=== PATIENT | female | born 1985 | race Caucasian/White ===

== ENCOUNTER → 2016-05-23 | Outpatient (CLI) | payer MEDICAID ==
[~2016-05-23] MED LIST: AMITRIPTYLINE H25 M2 PO
[2016-05-23 16:44] VITALS: BP 130/72
--- NOTE | 2016-05-23 17:45 | NUR ---
760 ML OF NS INFUSED AND PT REPORTS SHE HAS TO LEAVE RIGHT AWAY TO GET HER CHILD. Lora CHURCHILL UPDATED ON PT
[2016-05-23 19:03] VITALS: BP 116/75
== END ==
LOC: AMSURD 16:24
DX: G43.909 Migraine, unspecified, not intractable, without status migrainosus (principal)
CPT/HCPCS: J1200; J2405; J7030

== ENCOUNTER → 2016-09-20 | Outpatient (CLI) | payer MEDICAID ==
[2016-05-23 19:03] VITALS: BP 116/75
== END ==
LOC: LAB 15:16
DX: R10.11 Right upper quadrant pain (principal)

== ENCOUNTER 2017-01-03 12:07 | Emergency (ER) | payer MEDICAID ==
[~2017-01-03] VITALS: Ht 165.1 cm; Wt 90.9 kg
[2017-01-03] MEDS ORDERED: CLARITIN LIQUI-10 MG PO (12:24)
[2017-01-03] MEDS ORDERED: PREDNISONE (12:24)
[2017-01-03] MEDS ORDERED: GOOD NEIGHBOR200 M3 PO (12:25)
[2017-01-03] MEDS ORDERED: LEVSIN-SL0.125 MG SL (15:06)
[2017-01-03] MEDS ORDERED: ZOFRAN ODT8 M1 PO (15:06)
[2017-01-03 15:18] VITALS: BP 127/82
== END 2017-01-03 15:20 | disposition home or self-care (01) ==
LOC: ED 12:07
DX: K52.9 Noninfective gastroenteritis and colitis, unspecified (principal); K08.89 Other specified disorders of teeth and supporting structures
CPT/HCPCS: J2405; J7120

== ENCOUNTER → 2017-06-07 | Outpatient (CLI) | payer MEDICAID ==
[~2017-06-07] MED LIST changes: +CITRATE OF1.75 GM/30 PO; +CLARITIN LIQUI-10 MG PO; +GOOD NEIGHBOR200 M3 PO; +LEVSIN-SL0.125 MG SL; +MIRALAX17 GM PO; +PREDNISONE; +ZOFRAN ODT8 M1 PO
[2017-06-07 12:31] LABS: EOS # 0.1 (0.04-0.40); EOS % 1.2 % (1.0-5.0); HEMATOCRIT 41.5 % (37.0-47.0); HEMOGLOBIN 13.8 g/dL (12.5-16.0); LYMPH# 1.6 (1.50-4.00); MEAN CELL VOLUME 82 fl (78-100); MEAN CORPUSCULAR HEMOGLOBIN 27 pg (27-31); MEAN CORPUSCULAR HGB CONC 33 g/dL (33-37); MEAN PLATELET VOLUME 10.3 fl (7.4-10.4); MONO # 0.6 (0.20-0.80); NEU # 6.9 (1.40-6.50); PLATELET COUNT 237 K/mm3 (130-400); RED BLOOD COUNT 5.05 M/mm3 (4.10-5.30); RED CELL DISTRIBUTION WIDTH 14.2 % (11.5-14.5); WHITE BLOOD COUNT 9.3 K/mm3 (4.8-10.8)
[2017-06-07 12:58] LABS: ALBUMIN 4.2 g/dL (3.5-5.0); BUN/CREATININE RATIO 15.6 (6.0-26.0); CALCIUM 9.7 mg/dL (8.4-10.2); POTASSIUM 4.1 mmol/L (3.6-5.0); TOTAL BILIRUBIN 0.5 mg/dL (0.2-1.3); TOTAL PROTEIN 8.3 g/dL (6.3-8.2)
[2017-06-07 13:16] LABS: PH-URINE 5.5 (5.0 - 8.0); URINE APPEARANCE HAZY; URINE COLOR YELLOW; URINE PROTEIN(semi-quant) TRACE mg/dL (NEGATIVE)
[2017-06-07 13:17] LABS: URINE BILIRUBIN NEGATIVE (NEGATIVE); URINE BLOOD NEGATIVE (NEGATIVE); URINE GLUCOSE NEGATIVE (NEGATIVE); URINE KETONE NEGATIVE (NEGATIVE); URINE LEUKOCYTE ESTERASE 1+ (NEGATIVE); URINE NITRATE NEGATIVE (NEGATIVE); URINE UROBILINOGEN NORMAL (NORMAL); URINE WBC 0-1 /hpf (0-3)
== END ==
LOC: LAB 12:00
PROVIDERS: Nurse Practitioner Family
DX: R10.11 Right upper quadrant pain (principal)

== ENCOUNTER 2017-06-08 06:49 | Emergency (ER) | payer MEDICAID ==
[~2017-06-08] VITALS: Ht 165.1 cm; Wt 90.0 kg
[~2017-06-08 06:49] MED LIST changes: -CITRATE OF1.75 GM/30 PO; -MIRALAX17 GM PO
[2017-06-08] MEDS ORDERED: MIRALAX17 GM PO (07:05)
[2017-06-08 07:42] LABS: EOS # 0.1 (0.04-0.40); EOS % 1.1 % (1.0-5.0); HEMATOCRIT 40.1 % (37.0-47.0); HEMOGLOBIN 13.3 g/dL (12.5-16.0); LYMPH# 1.5 (1.50-4.00); MEAN CELL VOLUME 81 fl (78-100); MEAN CORPUSCULAR HEMOGLOBIN 27 pg (27-31); MEAN CORPUSCULAR HGB CONC 33 g/dL (33-37); MONO # 0.6 (0.20-0.80); NEU # 6.3 (1.40-6.50); PLATELET COUNT 231 K/mm3 (130-400); RED BLOOD COUNT 4.93 M/mm3 (4.10-5.30); WHITE BLOOD COUNT 8.5 K/mm3 (4.8-10.8)
[2017-06-08 07:55] LABS: ALBUMIN 4.1 g/dL (3.5-5.0); BUN/CREATININE RATIO 15.1 (6.0-26.0); CALCIUM 9.5 mg/dL (8.4-10.2); TOTAL BILIRUBIN 0.5 mg/dL (0.2-1.3); TOTAL PROTEIN 8.2 g/dL (6.3-8.2)
[2017-06-08 08:12] LABS: PH-URINE 6.5 (5.0 - 8.0); URINE APPEARANCE CLEAR; URINE BILIRUBIN NEGATIVE (NEGATIVE); URINE BLOOD NEGATIVE (NEGATIVE); URINE COLOR YELLOW; URINE GLUCOSE NEGATIVE (NEGATIVE); URINE KETONE NEGATIVE (NEGATIVE); URINE NITRATE NEGATIVE (NEGATIVE); URINE PROTEIN(semi-quant) TRACE mg/dL (NEGATIVE); URINE UROBILINOGEN NORMAL (NORMAL)
[2017-06-08 08:13] LABS: URINE LEUKOCYTE ESTERASE NEGATIVE (NEGATIVE)
[2017-06-08] MEDS ORDERED: CITRATE OF1.75 GM/30 PO (08:37)
[2017-06-08 08:49] VITALS: BP 137/78
== END 2017-06-08 08:58 | disposition home or self-care (01) ==
LOC: ED 06:49
PROVIDERS: Physician Assistant
DX: K59.00 Constipation, unspecified (principal); Z90.49 Acquired absence of other specified parts of digestive tract; Z88.5 Allergy status to narcotic agent

== ENCOUNTER → 2017-08-12 | Outpatient (CLI) | payer MEDICAID ==
[~2017-08-12] MED LIST changes: +CITRATE OF1.75 GM/30 PO; +MIRALAX17 GM PO
== END ==
LOC: RAD 08:38
DX: M79.644 Pain in right finger(s) (principal)

== ENCOUNTER 2017-08-29 19:45 | Emergency (ER) | payer MEDICAID ==
[~2017-08-29] VITALS: Ht 165.1 cm; Wt 86.4 kg
[2017-08-29 20:58] VITALS: BP 120/60
== END 2017-08-29 20:58 | disposition home or self-care (01) ==
LOC: ED 19:45
DX: G43.909 Migraine, unspecified, not intractable, without status migrainosus (principal)
CPT/HCPCS: J1885; J2550

== ENCOUNTER → 2017-11-01 | Outpatient (CLI) | payer MEDICAID ==
[2017-11-01 16:38] LABS: ALBUMIN 4.6 g/dL (3.5-5.0); BUN/CREATININE RATIO 13.8 (6.0-26.0); CALCIUM 9.6 mg/dL (8.4-10.2); POTASSIUM 3.6 mmol/L (3.6-5.0); TOTAL BILIRUBIN 0.2 mg/dL (0.2-1.3); TOTAL PROTEIN 8.7 g/dL (6.3-8.2)
[2017-11-01 16:41] LABS: EOS # 0.1 (0.04-0.40); EOS % 0.9 % (1.0-5.0); HEMATOCRIT 38.7 % (37.0-47.0); HEMOGLOBIN 12.6 g/dL (12.5-16.0); LYMPH# 2.2 (1.50-4.00); MEAN CELL VOLUME 82 fl (78-100); MEAN CORPUSCULAR HEMOGLOBIN 27 pg (27-31); MEAN CORPUSCULAR HGB CONC 33 g/dL (33-37); MEAN PLATELET VOLUME 10.2 fl (7.4-10.4); MONO # 0.6 (0.20-0.80); NEU # 7.7 (1.40-6.50); PLATELET COUNT 232 K/mm3 (130-400); RED BLOOD COUNT 4.72 M/mm3 (4.10-5.30); RED CELL DISTRIBUTION WIDTH 14.6 % (11.5-14.5); WHITE BLOOD COUNT 10.5 K/mm3 (4.8-10.8)
== END ==
LOC: LAB 16:09
PROVIDERS: Family Medicine
DX: K86.1 Other chronic pancreatitis (principal); R53.83 Other fatigue; E66.9 Obesity, unspecified; E55.9 Vitamin D deficiency, unspecified

== ENCOUNTER 2018-01-01 20:10 | Emergency (ER) | payer MEDICAID ==
[~2018-01-01] VITALS: Ht 165.1 cm; Wt 84.1 kg
[2018-01-01] MEDS ORDERED: WOMEN'S DAILY F1 TAB PO (20:21)
[2018-01-01] MEDS ORDERED: NORCO 325 MG-51 TA1 PO (20:40)
[2018-01-01] MEDS ORDERED: PENICILLIN-VK500 M1 PO (20:40)
[2018-01-01 21:06] VITALS: BP 132/80
== END 2018-01-01 21:06 | disposition home or self-care (01) ==
LOC: ED 20:10
DX: K08.89 Other specified disorders of teeth and supporting structures (principal)
CPT/HCPCS: J1885

== ENCOUNTER → 2018-04-02 | Outpatient (CLI) | payer MEDICAID ==
[~2018-04-02] MED LIST changes: +NORCO 325 MG-51 TA1 PO; +PENICILLIN-VK500 M1 PO; +WOMEN'S DAILY F1 TAB PO
== END ==
LOC: RAD 08:55
DX: M25.512 Pain in left shoulder (principal)

== ENCOUNTER → 2018-04-09 | Outpatient (CLI) | payer BC, MEDICAID | LOC: RAD 14:00 | DX: M25.512 Pain in left shoulder (principal) ==

== ENCOUNTER → 2018-09-28 | Outpatient (CLI) | payer BC | LOC: LAB 09:22 | PROVIDERS: Family Medicine | DX: F10.21 Alcohol dependence, in remission (principal) ==

== ENCOUNTER → 2018-10-08 | Outpatient (CLI) | payer BC ==
[~2018-10-08] MED LIST changes: +GOOD NEIGHBOR P20 M1 PO; +ZYRTEC ALLERGY10 MG PO
[2018-10-08 16:16] LABS: EOS # 0.2 (0.04-0.40); EOS % 2.2 % (1.0-5.0); HEMATOCRIT 40.5 % (37.0-47.0); HEMOGLOBIN 13.3 g/dL (12.5-16.0); LYMPH# 1.7 (1.50-4.00); MEAN CELL VOLUME 84 fl (78-100); MEAN CORPUSCULAR HEMOGLOBIN 28 pg (27-31); MEAN CORPUSCULAR HGB CONC 33 g/dL (33-37); MEAN PLATELET VOLUME 9.8 fl (7.4-10.4); MONO # 0.7 (0.20-0.80); NEU # 7.1 (1.40-6.50); PLATELET COUNT 272 K/mm3 (130-400); RED BLOOD COUNT 4.84 M/mm3 (4.10-5.30); RED CELL DISTRIBUTION WIDTH 13.5 % (11.5-14.5); WHITE BLOOD COUNT 9.7 K/mm3 (4.8-10.8)
[2018-10-08 16:45] LABS: ALBUMIN 4.2 g/dL (3.5-5.0); POTASSIUM 4.1 mmol/L (3.5-5.1)
[2018-10-08 16:47] LABS: CALCIUM 9.8 mg/dL (8.3-10.5)
[2018-10-08 16:48] LABS: TOTAL PROTEIN 8.1 g/dL (6.4-8.3)
[2018-10-08 16:50] LABS: TOTAL BILIRUBIN 0.2 mg/dL (0.2-1.2)
[2018-10-08 18:28] LABS: PH-URINE 5.5 (5.0 - 8.0); URINE APPEARANCE CLEAR; URINE BILIRUBIN NEGATIVE (NEGATIVE); URINE BLOOD NEGATIVE (NEGATIVE); URINE COLOR YELLOW; URINE GLUCOSE NEGATIVE (NEGATIVE); URINE KETONE NEGATIVE (NEGATIVE); URINE LEUKOCYTE ESTERASE NEGATIVE (NEGATIVE); URINE NITRATE NEGATIVE (NEGATIVE); URINE PROTEIN(semi-quant) NEGATIVE (NEGATIVE); URINE UROBILINOGEN NORMAL (NORMAL); URINE WBC 0-1 /hpf (0-3)
== END ==
LOC: LAB 15:54
PROVIDERS: Nurse Practitioner
DX: R10.9 Unspecified abdominal pain (principal); R11.2 Nausea with vomiting, unspecified

== ENCOUNTER → 2019-05-07 | Outpatient (CLI) | payer OTHER ==
[2018-10-14 23:30] VITALS: BP 131/78
[2019-05-09 05:48] LABS: FOLLICLE STIMULATING HORMONE 3.9 mIU/mL (()); LUTENIZING HORMONE 3.6 mIU/mL (()); PROGESTERONE <0.5 ng/mL (())
[2019-05-13 13:57] LABS: ESTRONE (E1) LEVEL 163 pg/mL (())
== END ==
LOC: LAB 17:23
PROVIDERS: Family Medicine
DX: N93.9 Abnormal uterine and vaginal bleeding, unspecified (principal); N94.6 Dysmenorrhea, unspecified

== ENCOUNTER → 2019-05-09 | Outpatient (CLI) | payer OTHER ==
[2018-10-14 23:30] VITALS: BP 131/78
== END ==
LOC: RAD 09:45
DX: D26.1 Other benign neoplasm of corpus uteri (principal); N83.202 Unspecified ovarian cyst, left side; N83.201 Unspecified ovarian cyst, right side; N94.6 Dysmenorrhea, unspecified

== ENCOUNTER → 2019-09-10 | Outpatient (CLI) | payer OTHER ==
[2018-10-14 23:30] VITALS: BP 131/78
[2019-09-10 16:50] LABS: EOS # 0.2 (0.04-0.40); EOS % 1.4 % (1.0-5.0); HEMATOCRIT 39.6 % (37.0-47.0); HEMOGLOBIN 13.1 g/dL (12.5-16.0); LYMPH# 2.3 (1.50-4.00); MEAN CELL VOLUME 86 fl (78-100); MEAN CORPUSCULAR HEMOGLOBIN 28 pg (27-31); MEAN CORPUSCULAR HGB CONC 33 g/dL (33-37); MEAN PLATELET VOLUME 9.6 fl (7.4-10.4); MONO # 0.8 (0.20-0.80); NEU # 8.5 (1.40-6.50); PLATELET COUNT 301 K/mm3 (130-400); RED BLOOD COUNT 4.63 M/mm3 (4.10-5.30); WHITE BLOOD COUNT 11.8 K/mm3 (4.8-10.8)
[2019-09-10 17:45] LABS: ALBUMIN 4.1 g/dL (3.5-5.0); POTASSIUM 3.7 mmol/L (3.5-5.1)
[2019-09-10 17:46] LABS: CALCIUM 9.5 mg/dL (8.3-10.5)
[2019-09-10 17:47] LABS: TOTAL PROTEIN 7.5 g/dL (6.4-8.3)
[2019-09-10 17:49] LABS: TOTAL BILIRUBIN 0.3 mg/dL (0.2-1.2)
== END ==
LOC: LAB 16:29
PROVIDERS: Family Medicine
DX: E66.9 Obesity, unspecified (principal); E55.9 Vitamin D deficiency, unspecified

== ENCOUNTER → 2019-12-02 | Outpatient (CLI) | payer OTHER ==
[2018-10-14 23:30] VITALS: BP 131/78
== END ==
LOC: LAB 10:55
DX: Z20.828 Contact with and (suspected) exposure to other viral communicable diseases (principal)

== ENCOUNTER → 2020-02-04 | Outpatient (CLI) | payer OTHER ==
[2018-10-14 23:30] VITALS: BP 131/78
== END ==
LOC: LAB 09:13
DX: J02.9 Acute pharyngitis, unspecified (principal); R09.81 Nasal congestion; Z20.828 Contact with and (suspected) exposure to other viral communicable diseases

== ENCOUNTER → 2020-12-18 | Outpatient (CLI) | payer BC ==
[2020-12-18 08:51] LABS: POTASSIUM 3.4 mmol/L (3.5-5.1)
[2020-12-18 08:52] LABS: BASO # 0.06 (0.02-0.10); CALCIUM 9.6 mg/dL (8.3-10.5); EOS % 5.4 % (1.0-5.0); HEMATOCRIT 39.8 % (37.0-47.0); LYMPH# 1.53 (1.50-4.00); MEAN CELL VOLUME 90 fl (78-100); MEAN CORPUSCULAR HEMOGLOBIN 30 pg (27-31); MEAN CORPUSCULAR HGB CONC 33 g/dL (33-37); MEAN PLATELET VOLUME 10.4 fl (7.4-10.4); MONO # 0.47 (0.20-0.80); NEU # 4.95 (1.40-6.50); PLATELET COUNT 237 K/mm3 (130-400); RED BLOOD COUNT 4.41 M/mm3 (4.10-5.30); RED CELL DISTRIBUTION WIDTH 13.6 % (11.5-14.5); WHITE BLOOD COUNT 7.4 K/mm3 (4.8-10.8)
[2020-12-18 08:53] LABS: TOTAL PROTEIN 7.5 g/dL (6.4-8.3)
[2020-12-18 08:55] LABS: TOTAL BILIRUBIN 0.4 mg/dL (0.2-1.2)
== END ==
LOC: LAB 08:21
PROVIDERS: Nurse Practitioner
DX: R23.3 Spontaneous ecchymoses (principal)